=== PATIENT | female | born 1970 | race Caucasian/White ===

== ENCOUNTER → 2023-05-25 10:56 | Outpatient (BNVA) | payer BC, SELFPAY | PROVIDERS: PCP Family Medicine; Visit Provider Family Medicine | DX: E03.9 Hypothyroidism, unspecified (principal) | CPT/HCPCS: 80053; 84443; 85025 ==

== ENCOUNTER 2023-07-11 09:05 | Emergency (ER) | payer BC, SELFPAY ==
[2023-07-11 09:10] VITALS: BP 149/107; PULSE 70; RESP 18; TEMP 36.4; O2SAT 98; BMI 21.9
--- NOTE | 2023-07-11 09:10 | XRR_ITS ---
PROCEDURE INFORMATION: Exam: XR Chest Exam date and time: 07/11/2023 9:27 AM Age: 53 years old Clinical indication: Pain; Chest pressure; Additional info: Dyspnea/cough TECHNIQUE: Imaging protocol: Radiologic exam of the chest. Views: 1 view. COMPARISON: No relevant prior studies available. FINDINGS: Lungs: Unremarkable. No consolidation. Pleural spaces: Unremarkable. No pleural effusion. No pneumothorax. Heart/Mediastinum: Unremarkable. No cardiomegaly. Bones/joints: Unremarkable. XR/XR chest 1V portable [id number] IMPRESSION: No acute findings.
--- NOTE | 2023-07-11 09:11 | ECG_ITS ---
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 Measurements Intervals [place] Rate: 60 P: 56 [place]: 190 QRS: -7 QRSD: 94 T: 18 QT: 403 QTc: 404 Interpretive Statements SINUS RHYTHM POSSIBLE LEFT ATRIAL ENLARGEMENT [-0.1mV P-WAVE IN V1/V2] LOW QRS VOLTAGE IN PRECORDIAL LEADS [QRS DEFLECTION < 1.0 mV IN CHEST LEADS] POSSIBLE ANTERIOR MYOCARDIAL INFARCTION , OF INDETERMINATE AGE [30 ms Q WAVE IN V3/V4, OR R < 0.2 mV IN V4] No previous ECG available for comparison Electronically Signed On 07-11-2023 21:22:21 CDT by Randy Rodriguez M.D. [id number]
--- NOTE | 2023-07-11 09:13 | W.ED.CHESTPA ---
HPI - Chest Pain General: Chief Complaint: Chest Pain Stated Complaint: chest pain, indegestion Time Seen by Provider: 07/11/23 09:10 Source: patient Mode of arrival: ambulatory History of Present Illness: 53-year-old female presents to the emergency room complaining of chest pain which she describes as indigestion. She had another episode earlier this week that resolved spontaneously. This morning's episode began while she was at work she took some Tums that seem to get better and then while she was driving home it recurred again. Radiates into her neck. She has not had any associated shortness of breath or nausea with it. No known history of coronary artery disease about 5 years ago she had a stress test that was negative. She does not smoke she is not diabetic she has a history of hypothyroidism. MD complaint: chest pain Onset (ago): minute(s) Timing of current episode: episodic Onset: during rest Pain location: substernal Pain radiation: neck Quality: tightness and aching Relieving factors: medication-other (Tums temporarily relieved) Exacerbating factors: nothing Associated symptoms: Reports nausea; Deny abdominal pain, diaphoresis, dyspnea, fever(s), leg edema, palpitations, sense of impending doom, syncope or vomiting Treatment prior to arrival: other ([id number]-cnr-[id number] antacid and Tums) Review of Systems Const: Denies: fever(s), chills or diaphoresis Card: Reports: chest pain; Denies: palpitations or syncope Resp: Denies: dyspnea GI: Reports: nausea; Denies: abdominal pain or vomiting : Denies: dysuria, urinary frequency or urinary urgency Musc: Denies: neck pain or back pain Skin/Breast: Denies: rash PFS ED PFSH: Medical History Hypothyroid Physical Exam Const: COMMON NORMALS: no acute distress GENERAL APPEARANCE: cooperative and comfortable ORIENTATION/CONSCIOUSNESS: Yes awake, Yes oriented to person, Yes oriented to place and Yes oriented to time HENMT: COMMON NORMALS: normocephalic, atraumatic and hearing grossly normal bilaterally HEAD & SCALP: normocephalic and atraumatic Resp: COMMON NORMALS: normal respiratory effort, No retractions, No use of accessory muscles and clear to auscultation bilaterally AUSCULTATION: clear to auscultation bilaterally Cardio: COMMON NORMALS: regular rate, regular rhythm and No murmurs present (Cardio) RATE: regular rate RHYTHM: regular rhythm GI: COMMON NORMALS: Soft to palpation and No hepatosplenomegaly present AUSCULTATION: Yes normoactive bowel sounds PALPATION: Yes Soft to palpation, No Tenderness to palpation present (GI), No Guarding due to palpation present (GI) and Yes No hepatosplenomegaly present Extremity: COMMON NORMALS: normal to inspection, capillary refill normal, no clubbing, cyanosis or edema, no calf tenderness and no pedal edema Neuro: SENSORIUM/ORIENTATION: Yes oriented to person, Yes oriented to place and Yes oriented to time Skin: COMMON NORMALS: no rashes or lesions noted GENERAL SKIN EXAM: no rashes or lesions noted Course Vital Signs: Vital signs: Vital Signs Temperature 97.6 F 07/11/23 09:10 Pulse Rate 70 07/11/23 09:10 Respiratory Rate 18 07/11/23 11:02 Blood Pressure 125/76 07/11/23 10:09 Pulse Oximetry 98 07/11/23 09:10 Oxygen Delivery Me thod Room Air 07/11/23 09:10 MDM - Chest Pain Medical Decision Making EKG cardiac enzymes negative. No acute ST changes in the EKG. Patient description of symptoms noncardiac in nature. Recommend starting PPI prescription given follow-up for any worsening or changes symptoms. Medical Records I reviewed the patient's medical records. Lab Data I reviewed the patient's lab results. 07/11/23 09:20 07/11/23 09:20 Radiology Impressions Chest X-Ray 07/11/23 09:10 IMPRESSION: No acute findings. Laboratory Results WBC 4.96 10^3/uL (3.29-11.43) 07/11/23 09:20 RBC 5.15 10^6/uL (3.85-5.65) 07/11/23 09:20 Hgb 15.60 g/dL (11.27-16.99) 07/11/23 09:20 Hct 47.6 % (36-47) H 07/11/23 09:20 MCV 92.4 fl (85-98) 07/11/23 09:20 MCH 30.3 pg (27-33) 07/11/23 09:20 MCHC 32.8 g/dL (30-55) 07/11/23 09:20 RDW 13.0 % (12.1-15.1) 07/11/23 09:20 Plt Count 218 10^3/cmm (157-399) 07/11/23 09:20 MPV 9.4 fL (7.4-10.4) 07/11/23 09:20 Neut % (Auto) 47.4 % 07/11/23 09:20 Lymph % (Auto) 40.1 % 07/11/23 09:20 [place] % (Auto) 11.1 % 07/11/23 09:20 Eos % (Auto) 0.6 % 07/11/23 09:20 Baso % (Auto) 0.6 % 07/11/23 09:20 Neut # (Auto) 2.35 10^3/uL (1.8-7.7) 07/11/23 09:20 Lymph # (Auto) 2.0 10^3/uL (0.8-4.8) 07/11/23 09:20 [place] # (Auto) 0.6 10^3/uL (0.2-0.9) 07/11/23 09:20 Eos # (Auto) 0.0 10^3/uL (0.0-0.8) 07/11/23 09:20 Baso # (Auto) 0.0 10^3/uL (0.0-0.1) 07/11/23 09:20 Nucleated RBC % (auto) 0 % 07/11/23 09:20 Nucleated RBCs # 0.0 /100WBC 07/11/23 09:20 Sodium 140 mmol/L (136-145) 07/11/23 09:20 Potassium 4.2 mmol/L (3.5-5.1) 07/11/23 09:20 Chloride 101 mmol/L (98-107) 07/11/23 09:20 Carbon Dioxide 28 mmol/L (22-29) 07/11/23 09:20 Anion Gap 15.2 (5-19) 07/11/23 09:20 BUN 27 mg/dL (6-20) H 07/11/23 09:20 Creatinine 0.8 mg/dL (0.5-0.9) 07/11/23 09:20 GFR Calculation 75.0 mL/min (90-130) L 07/11/23 09:20 Glucose 103 mg/dL (65-115) 07/11/23 09:20 Calculated Osmolality 295 mOsm/kg (285-295) 07/11/23 09:20 Calcium 10.2 mg/dL (8.5-10.5) 07/11/23 09:20 Total Bilirubin 0.3 mg/dL (0.15-1.2) 07/11/23 09:20 AST 37 U/L (0-32) H 07/11/23 09:20 ALT 47 U/L (0-33) H 07/11/23 09:20 Alkaline Phosphatase 106 U/L (35-105) H 07/11/23 09:20 Troponin T Baseline < 6 ng/L (0-10) 07/11/23 09:20 Troponin T 120 Minute < 6.0 ng/L (0-10) 07/11/23 11:17 Delta Troponin T 0 ABS# (0-10) 07/11/23 11:17 Total Protein 7.3 g/dL (6.6-8.7) 07/11/23 09:20 Albumin 5.2 g/dL (3.5-5.2) 07/11/23 09:20 Globulin 2.1 g/dL (1.3-4.6) 07/11/23 09:20 All radiology interpretation(s) finalized by discharge Discharge Plan Discharge Patient Disposition: Home Clinical Impression: Atypical chest pain, Gastroesophageal reflux disease Condition: Stable Prescriptions: New omeprazole 40 mg capsule,delayed release(DR/EC) 40 mg PO DAILY Qty: 30 0RF No Action levothyroxine [Synthroid] 25 mcg tablet 25 mcg PO DAILY Qty: 90 3RF Discharge Orders: Discharge ED (Routine); Ordered 07/11/23 Ordered By: Dev Mcneil Referrals: Lea Cabrales MD [Primary Care Provider] - Discharge Diet: As Directed Patient Instructions: Diet for Stomach Ulcers and Gastritis (ED), GERD (Gastroesophageal Reflux Disease) (ED), Opioid Safety, Pain Management Activity Restrictions/Additional Instructions: Symptoms persist or worsen either recheck in the emergency room with your primary care doctor. 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
[2023-07-11] MEDS: lidocaine 2% viscous 15 ML, aluminum-mag hydrox-simethicon 30 ML, sucralfate oral liq 1 GM PO (09:20)
[2023-07-11 09:29] LABS: Basophils % 0.6 %; Eosinophils % 0.6 %; Hematocrit 47.6 % (36-47); Lymphocytes % 40.1 %; Mean Corpuscular HGB Conc 32.8 g/dL (30-55); Mean Corpuscular Hemoglobin 30.3 pg (27-33); Mean Corpuscular Volume 92.4 fl (85-98); Mean Platelet Volume 9.4 fL (7.4-10.4); Monocytes # 0.6 10^3/uL (0.2-0.9); Monocytes % 11.1 %; Neutrophils # 2.35 10^3/uL (1.8-7.7); Neutrophils % 47.4 %; Nucleated Red Blood Cells % 0 %; Platelet Count 218 10^3/cmm (157-399); Red Blood Count 5.15 10^6/uL (3.85-5.65); White Blood Count 4.96 10^3/uL (3.29-11.43)
[2023-07-11 10:09] VITALS: BP 125/76
[2023-07-11 10:09] LABS: Troponin(5th) Baseline < 6 ng/L (0-10)
[2023-07-11 10:10] LABS: Alanine Aminotransferase 47 U/L (0-33); Albumin Level 5.2 g/dL (3.5-5.2); Alkaline Phosphatase 106 U/L (35-105); Aspartate Amino Transferase 37 U/L (0-32); Blood Urea Nitrogen 27 mg/dL (6-20); Calcium 10.2 mg/dL (8.5-10.5); Carbon Dioxide 28 mmol/L (22-29); Chloride 101 mmol/L (98-107); Globulin 2.1 g/dL (1.3-4.6); Glucose 103 mg/dL (65-115); Osmolality Calculated 295 mOsm/kg (285-295); Sodium 140 mmol/L (136-145); Total Bilirubin 0.3 mg/dL (0.15-1.2); Total Protein 7.3 g/dL (6.6-8.7)
[2023-07-11 10:12] LABS: Anion Gap 15.2 (5-19); Potassium 4.2 mmol/L (3.5-5.1)
[2023-07-11 11:02] VITALS: RESP 18
--- NOTE | 2023-07-11 11:11 | ECG_ITS ---
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 Measurements Intervals [place] Rate: 60 P: 51 [place]: 181 QRS: -5 QRSD: 92 T: 10 QT: 405 QTc: 407 Interpretive Statements SINUS RHYTHM LOW QRS VOLTAGE IN PRECORDIAL LEADS [QRS DEFLECTION < 1.0 mV IN CHEST LEADS] INCOMPLETE RIGHT BUNDLE BRANCH BLOCK [90+ ms QRS DURATION, TERMINAL R IN V1/V2, 40+ ms S IN I/aVL/V4/V5/V6] POSSIBLE ANTERIOR MYOCARDIAL INFARCTION , OF INDETERMINATE AGE [30 ms Q WAVE IN V3/V4, OR R < 0.2 mV IN V4] No previous ECG available for comparison Electronically Signed On 07-11-2023 21:29:28 CDT by Randy Rodriguez M.D. [id number]
[2023-07-11 11:58] LABS: Troponin 5 2HR < 6.0 ng/L (0-10); Troponin 5 2HR Delta 0 ABS# (0-10)
== END 2023-07-11 12:58 | disposition home or self-care (01) ==
PROVIDERS: Emergency Provider Family Medicine; PCP Family Medicine
DX: R07.89 Other chest pain (principal); K21.9 Gastro-esophageal reflux disease without esophagitis
CPT/HCPCS: 36415; 71045; 80053; 84484; 85025; 93005; 99284

== ENCOUNTER 2023-09-07 12:30 | Outpatient (CLI) | payer BC, SELFPAY | END 2023-09-07 12:31 | disposition home or self-care (01) | LOC: RAD 12:30 | PROVIDERS: PCP Family Medicine; Visit Provider Family Medicine | DX: J40 Bronchitis, not specified as acute or chronic (principal) | CPT/HCPCS: 71046 ==

== ENCOUNTER → 2024-05-17 10:22 | Outpatient (BNVA) | payer BC, OTHER, SELFPAY | PROVIDERS: Visit Provider Family Medicine | DX: E03.9 Hypothyroidism, unspecified (principal); B34.9 Viral infection, unspecified | CPT/HCPCS: 80053; 84443; 85025; 85651; 86308 ==

== ENCOUNTER → 2024-10-06 12:32 | Outpatient (BNVA) | payer OTHER, SELFPAY | PROVIDERS: Visit Provider Family Medicine | DX: E03.9 Hypothyroidism, unspecified (principal); M35.3 Polymyalgia rheumatica | CPT/HCPCS: 80053; 84443; 85025; 85651; 86140 ==

== ENCOUNTER → 2024-11-14 15:12 | Outpatient (BNVA) | payer OTHER, SELFPAY | PROVIDERS: Visit Provider Family Medicine | DX: R52 Pain, unspecified (principal) | CPT/HCPCS: 73110; 73610 ==

== ENCOUNTER → 2024-12-05 12:49 | Outpatient (BNVA) | payer OTHER, SELFPAY | PROVIDERS: Visit Provider Family Medicine | DX: R39.9 Unspecified symptoms and signs involving the genitourinary system (principal); N30.00 Acute cystitis without hematuria; J40 Bronchitis, not specified as acute or chronic | CPT/HCPCS: 81000 ==

== ENCOUNTER → 2025-03-21 14:32 | Outpatient (BNVA) | payer OTHER, SELFPAY | PROVIDERS: Visit Provider Registered Nurse Neonatal Intensive Care | DX: M19.031 Primary osteoarthritis, right wrist (principal) | CPT/HCPCS: 73110 ==

== ENCOUNTER 2025-05-03 07:09 | Emergency (ER) | payer OTHER, SELFPAY ==
[2025-05-03] VITALS (8 sets, daily range): BP systolic 115–158; BP diastolic 71–88; PULSE 71–88; RESP 15; TEMP 36.8; O2SAT 92–97; BMI 24.5
--- OUTSIDE RECORDS SUMMARY | 2025-05-03 07:17 | XMS_ITS | Clinical Summary ---
Author Organization [facility] Address [address] [place] [address] Care Team Providers Care Procedure Rn Name Role Phone Unavailable Primary Care Provider Unavailabl e Allergies No known active allergies Medications cholecalciferol, Vitamin D3, (VITAMIN D3) 25 mcg (1,000 unit) Capsule Take 1,000 Units by mouth daily. 09/17/2022 Active levothyroxine 25 mcg tablet Take 25 mcg by mouth daily. 12/02/2022 Active Active Problems No known active problems Social History Tobacco Use Types Packs/Day Years Used Date Smoking Tobacco: Never Passive Smoke Exposure: Never Smokeless Tobacco: Never Tobacco Cessation:Counseling Given: No Comments No Sex and Gender Information Value Date Recorded Sex Assigned at Not on file Legal Sex Female 8:05 AM CDT Gender Identity Not on file Sexual Orientation Not on file Last Filed Vital Signs Vital Sign Reading Time Taken Comments Blood Pressure 132/86 12/10/2022 8:51 AM CDT Pulse 60 12/10/2022 8:51 AM CDT Temperature 36.3 C (97.4 F) 12/10/2022 8:51 AM CDT Respiratory Rate - - Oxygen Saturation 97% 12/10/2022 8:51 AM CDT Inhaled Oxygen Concentration - - Weight 56.2 kg (124 lb) 12/10/2022 8:51 AM CDT Height 154.9 cm (5' 1 ) 12/10/2022 8:51 AM CDT Body Mass Index 23.43 12/10/2022 8:51 AM CDT Plan of Treatment Health Maintenance Due Date Last Done Comments DTAP/TDAP/TD VACCINES (1 - Tdap) 1989 HEPATITIS B VACCINES (1 of 3 - 19+ 3-dose series) 03/1989 HPV/Cotest (21-29) 1991 CERVICAL CANCER SCREENING 02/02/2000 HPV/Cotest (30-65) 02/02/2000 PAP SMEAR 02/02/2000 BREAST CANCER SCREENING 2010 COLORECTAL SCREENING 2015 Colorectal Cancer Screening 2015 FIT-DNA Q 3 years 2015 FIT/FOBT Q 1 year 2015 Flex Sig/CT Colonography Q 5 years 2015 ZOSTER VACCINE (1 of 2) 02/02/2020 INFLUENZA VACCINE (#1) 2025 Insurance [facility] BLUE Clinical Ink/TRUE BLUE PPO
--- NOTE | 2025-05-03 07:20 | XRR_ITS ---
PROCEDURE INFORMATION: Exam: XR Right Shoulder Exam date and time: 05/03/2025 7:32 AM Age: 55 years old Clinical indication: Pain; Shoulder; Right TECHNIQUE: Imaging protocol: Radiologic exam of the right shoulder. Views: 2 or more views. Total images: 1 COMPARISON: CR (CHEST, ) 05/03/2025 7:30 AM FINDINGS: Bones/joints: Old right rib fracture evident. No acute fracture nor subluxation. No osseous erosion nor periosteal reaction. Soft tissues: Normal. XR/XR shoulder RT min 2V* [id number] IMPRESSION: No acute osseous pathology.
--- NOTE | 2025-05-03 07:21 | ECG_ITS ---
[facility] Test Date: 2025-05-03 Pat Name: Lauren Cruz Department: Room: Gender: Female Service Correspondent: : 1970 Requested By: Dev Saba Order Number: [id number] Miranda MD: Randy Rodriguez M.D. Measurements Intervals [place] Rate: 66 P: 45 [place]: 182 QRS: -10 QRSD: 95 T: 1 QT: 397 QTc: 417 Interpretive Statements SINUS RHYTHM POSSIBLE LEFT ATRIAL ENLARGEMENT [-0.1mV P-WAVE IN V1/V2] LOW QRS VOLTAGE IN PRECORDIAL LEADS [QRS DEFLECTION < 1.0 mV IN CHEST LEADS] INCOMPLETE RIGHT BUNDLE BRANCH BLOCK [90+ ms QRS DURATION, TERMINAL R IN V1/V2, 40+ ms S IN I/aVL/V4/V5/V6] POSSIBLE ANTERIOR MYOCARDIAL INFARCTION , OF INDETERMINATE AGE [30 ms Q WAVE IN V3/V4, OR R < 0.2 mV IN V4] Compared to ECG 07/11/2023 11:23:16 No significant changes Electronically Signed On 05-03-2025 09:17:40 CDT by Randy Rodriguez M.D. [id number]
--- NOTE | 2025-05-03 07:21 | XRR_ITS ---
PROCEDURE INFORMATION: Exam: XR Chest Exam date and time: 05/03/2025 7:30 AM Age: 55 years old Clinical indication: Pain; Chest pressure; Additional info: Dyspnea/cough TECHNIQUE: Imaging protocol: Radiologic exam of the chest. Views: 1 view. Total images: 1 COMPARISON: CR XR chest 2V* [id number] 09/07/2023 12:43 PM FINDINGS: Lungs: Unremarkable. No consolidation. Pleural spaces: Unremarkable. No pleural effusion. No pneumothorax. Heart/Mediastinum: Unremarkable. No cardiomegaly. Bones/joints: Unremarkable. Organs: Surgical clips are present in the right upper quadrant which are suggestive of prior cholecystectomy. XR/XR chest 1V portable [id number] IMPRESSION: No acute findings.
--- NOTE | 2025-05-03 07:29 | ED_ITS ---
HPI - Chest Pain 2 General: Chief Complaint: Chest Pain Stated Complaint: right shoulder pain, ing, cp Time Seen by Provider: 05/03/25 07:20 History of Present Illness: 55-year-old female presents emergency ro om complaining of chest discomfort radiating to her right shoulder and into her back. She was working around 4 AM she began having discomfort she initially thought it was reflux took several Tums did not have any significant relief she does have a history of family history of heart disease no personal history she has previously had a stress test was normal at the time I seen her states she is not having any further pain she has some T wave inversion in V1 through 3 but that is been present for several years and is unchanged no shortness of breath. She does have some nausea with it. Associated symptoms: Deny abdominal pain, dyspnea or fever(s) Related Data Previous Rx's ?Medication ?Instructions ?Recorded albuterol sulfate 90 mcg/actuation 2 puff inhalation Q 4H PRN 09/29/23 aerosol inhaler (Ventolin HFA) shortness of breath or wheezing #8.5 grams levothyroxine 25 mcg tablet 25 mcg PO DAILY #90 tabs 0 05/23/24 (Synthroid) diclofenac sodium 75 mg 75 mg PO BID PRN pain #14 ta bs 04/12/25 tablet,delayed release pantoprazole 40 mg tablet,delayed 40 mg PO BID 40 days #80 tabs 05/03/25 release (Protonix) sucralfate 1 gram tablet (Carafate) 1 g PO Q6H PRN hea rtburn #30 tabs 05/03/25 Allergies Allergy/AdvReac Type Severity Reaction Status Date / Time cefdinir Allergy Severe unaware Verified 04/12/25 08:53 levofloxacin (From Levaquin) Allergy anyphylaxis Verified 04/12/25 08:53 Review of Systems 2 Const: Denies: fever(s) or chills Card: Denies: chest pain Resp: Denies: dyspnea GI: Denies: abdominal pain : Denies: dysuria, urinary frequency or urinary urgency Musc: Denies: neck pain or back pain Skin/Breast: Denies: rash PFSH ED 2 PFSH: Medical History Hypothyroid Social History (Reviewed 05/03/25 @ 07:43 by GILA Hernandez Smoking and tobacco/nicotine status: never used tobacco/nicotine Physical Exam 2 Const: GENERAL APPEARANCE: cooperative ORIENTATION/CONSCIOUSNESS: Yes awake, Yes oriented to person, Yes oriented to place and Yes oriented to time HENMT: COMMON NORMALS: normocephalic, atraumatic and hearing grossly normal bilaterally HEAD & SCALP: normocephalic and atraumatic Resp: COMMON NORMALS: normal respiratory effort, No retractions, No use of accessory muscles and clear to auscultation bilaterally AUSCULTATION: clear to auscultation bilaterally Cardio: COMMON NORMALS: regular rate, regular rhythm and No murmurs present (Cardio) RATE: regular rate RHYTHM: regular rhythm GI: COMMON NORMALS: Soft to palpation and No hepatosplenomegaly present A USCULTATION: Yes normoactive bowel sounds PALPATION: Yes Soft to palpation, No Tenderness to palpation present (GI), No Guarding due to palpation present (GI) and Yes No hepatosplenomegaly present Extremity: COMMON NORMALS: normal to inspection, capillary refill normal, no clubbing, cyanosis or edema, no calf tenderness and no pedal edema Neuro: SENSORIUM/ORIENTATION: Yes oriented to person, Yes oriented to place and Yes oriented to time Skin: COMMON NORMALS: no rashes or lesions noted GENERAL SKIN EXAM: no rashes or lesions noted Course 2 Vital Signs: Vital signs: Vital Signs Temperature 98.2 F 05/03/25 07:20 Pulse Rate 71 05/03/25 11:43 Respiratory Rate 15 05/03/25 07:20 Blood Pressure 124/72 05/03/25 11:43 Pulse Oximetry 92 05/03/25 11:43 Oxygen Delivery Me thod Room Air 05/03/25 10:00 MDM - Chest Pain Medical Decision Making Cardiac enzymes and EKGs unremarkable. No acute changes. [place] nonsignificant. Patient did have some relief with a GI cocktail. Suspect this is noncardiac related. Will discharge home on pantoprazole and sulcal fate. Follow-up with primary care doc if not improving may need further evaluation. If has recurrence of episodes return to the emergency room. Medical Records I reviewed the patient's medical records. Lab Data I reviewed the patient's lab results. 05/03/25 07:33 05/03/25 07:33 Radiology Impressions Shoulder X-Ray 05/03/25 07:20 IMPRESSION: No acute osseous pathology. Chest X-Ray 05/03/25 07:21 IMPRESSION: No acute findings. Laboratory Results WBC 5.80 10^3/uL (3.29-11.43) 05/03/25 07:33 RBC 5.12 10^6/uL (3.85-5.65) 05/03/25 07:33 Hgb 15.40 g/dL (11.27-16.99) 05/03/25 07:33 Hct 46.5 % (36-47) 05/03/25 07:33 MCV 90.8 fl (85-98) 05/03/25 07:33 MCH 30.1 pg (27-33) 05/03/25 07: MCHC 33.1 g/dL (30-55) 05/03/25 07:33 RDW 12.8 % (12.1-15.1) 05/03/25 07:33 Plt Count 222 10^3/cmm (157-399) 05/03/25 07:33 MPV 9.0 fL (7.4-10.4) 05/03/25 07:33 Neut % (Auto) 50.9 % 05/03/25 07:33 Lymph % (Auto) 34.1 % 05/03/25 07:33 [place] % (Auto) 12.1 % 05/03/25 07:33 Eos % (Auto) 1.9 % 05/03/25 07:33 Baso % (Auto) 0.7 % 05/03/25 07:33 Neut # (Auto) 2.95 10^3/uL (1.8-7.7) 05/03/25 07:33 Lymph # (Auto) 2.0 10^3/uL (0.8-4.8) 05/03/25 07:33 [place] # (Auto) 0.7 10^3/uL (0.2-0.9) 05/03/25 07:33 Eos # (Auto) 0.1 10^3/uL (0.0-0.8) 05/03/25 07:33 Baso # (Auto) 0.0 10^3/uL (0.0-0.1) 05/03/25 07:33 Nucleated RBC % (auto) 0 % 05/03/25 07:33 Nucleated RBCs # 0.0 /100WBC 05/03/25 07:33 Sodium 141 mmol/L (136-145) 05/03/25 07:33 Potassium 4.0 mmol/L (3.5-5.1) 05/03/25 07:33 Chloride 99 mmol/L (98-107) 05/03/25 07:33 Carbon Dioxide 29 mmol/L (22-29) 05/03/25 07:33 Anion Gap 17.0 (5-19) 05/03/25 07:33 BUN 17 mg/dL (6-20) 05/03/25 07:33 Creatinine 0.8 mg/dL (0.5-0.9) 05/03/25 07:33 GFR Calculation 74.5 mL/min (90-130) L 05/03/25 07:33 Glucose 105 mg/dL (65-115) 05/03/25 07:33 Calculated Osmolality 294 mOsm/kg (285-295) 05/03/25 07:33 Calcium 10.3 mg/dL (8.5-10.5) 05/03/25 07:33 Total Bilirubin 0.3 mg/dL (0.15-1.2) 05/03/25 07:33 AST 90 U/L (0-32) H 05/03/25 07:33 ALT 127 U/L (0-33) H 05/03/25 07:33 Alkaline Phosphatase 147 U/L (35-105) H 05/03/25 07:33 Troponin T Baseline < 6 ng/L (0-10) 05/03/25 07:33 Troponin T 120 Minute < 6.0 ng/L (0-10) 05/03/25 09:28 Delta Troponin T 0 ABS# (0-10) 05/03/25 09:28 Total Protein 7.6 g/dL (6.6-8.7) 05/03/25 07:33 Albumin 5.0 g/dL (3.5-5.2) 05/03/25 07:33 Globulin 2.6 g/dL (1.3-4.6) 05/03/25 07:33 All radiology interpretation(s) finalized by discharge EKG Data EKG 1: Interpretation: 05/03/2025 7:19 AM EKG shows sinus rhythm rate of 66 QTc 417 Q waves in V12 and 3. EKG is no significant changes from 07/11/2023 there is no new acute ST changes elevation or T wave changes. EKG 2: Interpretation: EKG 05/03/2025 1039 normal sinus rhythm rate of 75 [place] interval 188 QTc 424 Q wave changes noted on earlier EKG is still present. No acute ST changes. Compared to EKG done earlier today no significant change. There is a fair amount of artifact at the baseline but does not significantly obscure rhythm. Discharge Plan Discharge Patient Disposition: Home Clinical Impression: Atypical chest pain, Upper back pain, GERD (gastroesophageal reflux disease) Condition: Stable Prescriptions: New pantoprazole [Protonix] 40 mg tablet,delayed release (DR/EC) 40 mg PO BID 40 Days Qty: 80 0RF sucralfate [Carafate] 1 gram tablet 1 g PO Q6H PRN (Reason: heartburn) Qty: 30 0RF No Action diclofenac sodium 75 mg tablet,delayed release (DR/EC) 75 mg PO BID PRN (Reason: pain) Qty: 14 0RF albuterol sulfate [Ventolin HFA] 90 mcg/actuation HFA aerosol inhaler 2 puff inhalation Q4H PRN (Reason: shortness of breath or wheezing) Qty: 8.5 2RF levothyroxine [Synthroid] 25 mcg tablet 25 mcg PO DAILY Qty: 90 3RF Discharge Orders: Discharge ED (Routine); Ordered 05/03/25 Ordered By: Dev Mcneil Referrals: Lea Cabrales MD [Primary Care Provider, Family Practice] Discharge Diet: As Directed Discharge Activity: Resume usual activity Patient Instructions: Diet for Stomach Ulcers and Gastritis (ED), GERD (Gastroesophageal Reflux Disease) (ED), Opioid Safety, Pain Management, Patient Portal & Ravi Instructions Activity Restrictions/Additional Instructions: Thank you for choosing [facility] for your healthcare needs today. It is very important that you follow up as instructed or that you return to the Emergency Department should you have concerns or if your condition changes or worsens in any way. You were seen in the emergency room with complaints of chest discomfort your EKGs and your cardiac enzymes were normal. Chest x-ray was also normal. Recommend you start on Protonix 40 mg twice a day also use Carafate as needed particularly the first 3 days. After 10 days of twice a day on the Protonix you can decrease to once daily. 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
[2025-05-03 07:42] LABS: Hematocrit 46.5 % (36-47); Hemoglobin 15.40 g/dL (11.27-16.99); Mean Corpuscular HGB Conc 33.1 g/dL (30-55); Mean Corpuscular Hemoglobin 30.1 pg (27-33); Mean Corpuscular Volume 90.8 fl (85-98); Nucleated Red Blood Cells % 0 %; Platelet Count 222 10^3/cmm (157-399); Red Blood Count 5.12 10^6/uL (3.85-5.65); White Blood Count 5.80 10^3/uL (3.29-11.43)
[2025-05-03 08:07] LABS: Troponin(5th) Baseline < 6 ng/L (0-10)
[2025-05-03 08:11] LABS: Alanine Aminotransferase 127 U/L (0-33); Albumin Level 5.0 g/dL (3.5-5.2); Alkaline Phosphatase 147 U/L (35-105); Anion Gap 17.0 (5-19); Aspartate Amino Transferase 90 U/L (0-32); Blood Urea Nitrogen 17 mg/dL (6-20); Calcium 10.3 mg/dL (8.5-10.5); Carbon Dioxide 29 mmol/L (22-29); Chloride 99 mmol/L (98-107); Creatinine Clr Calc Pharmacy 65.5604; Globulin 2.6 g/dL (1.3-4.6); Glucose 105 mg/dL (65-115); Osmolality Calculated 294 mOsm/kg (285-295); Potassium 4.0 mmol/L (3.5-5.1); Sodium 141 mmol/L (136-145); Total Protein 7.6 g/dL (6.6-8.7)
[2025-05-03] MEDS: lidocaine 2% viscous 15 ML, aluminum-mag hydrox-simethicon 30 ML, sucralfate oral liq 1 GM PO (08:38)
[2025-05-03 09:50] LABS: Troponin 5 2HR < 6.0 ng/L (0-10); Troponin 5 2HR Delta 0 ABS# (0-10)
--- NOTE | 2025-05-03 10:39 | ECG_ITS ---
[employer] Test Date: 2025-05-03 Pat Name: Lauren Cruz Department: Room: Gender: Female Pier Runner: : 1970 Requested By: Dev Saba Order Number: [id number] Miranda MD: Randy Rodriguez M.D. Measurements Intervals [place] Rate: 75 P: 39 VT: 188 QRS: -11 QRSD: 90 T: 1 QT: 379 QTc: 424 Interpretive Statements SINUS RHYTHM LOW QRS VOLTAGE IN PRECORDIAL LEADS [QRS DEFLECTION < 1.0 mV IN CHEST LEADS] POSSIBLE RIGHT VENTRICULAR CONDUCTION DELAY [RSR (QR) IN V1/V2] POSSIBLE ANTERIOR MYOCARDIAL INFARCTION , OF INDETERMINATE AGE [30 ms Q WAVE IN V3/V4, OR R < 0.2 mV IN V4] Compared to ECG 05/03/2025 07:19:13 Incomplete right bundle-branch block no longer present Myocardial infarct finding still present Electronically Signed On 05-03-2025 22:54:32 CDT by Randy Rodriguez M.D. [id number] [id number]
== END 2025-05-03 11:44 | disposition home or self-care (01) ==
PROVIDERS: Emergency Provider Family Medicine; PCP Family Medicine
DX: R07.89 Other chest pain (principal); M54.89 Other dorsalgia; K21.9 Gastro-esophageal reflux disease without esophagitis
CPT/HCPCS: 36415; 71045; 73030; 80053; 84484; 85025; 93005; 99285; J9999

== ENCOUNTER → 2025-05-17 08:08 | Outpatient (BNVA) | payer OTHER, SELFPAY | PROVIDERS: PCP Family Medicine; Visit Provider Student in an Organized Health Care Education/Training Program | DX: M65.4 Radial styloid tenosynovitis [de Quervain] (principal) | CPT/HCPCS: 73110 ==